=== PATIENT | female | born 1995 ===

== ENCOUNTER 2016-09-06 20:53 | Emergency (ER) | payer MEDICAID, OTHER ==
[2016-01-30 00:46] VITALS: BMI 32.5
--- NOTE | 2016-09-10 18:30 | OBHP ---
Datetime: 09/06/2016 22:15 IP Adm Impression: Term, intrauterine ; No Active Labor; Intact Membranes IP Admit Plan: Discharge home Admit Comment, IP Provider: 20 y.o. P0010, LMP unsure, CYNDEE 09/14/16, EGA 39 weeks, C/O vagnal pressure / crampy vaginal pain x 2-3 days "non stop"; pain scale 8/10. (+) AFM. Denies LOF, VB; had vaginal in tercourse last night. issues: [facility]; anemia. 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 2016, tonsillectomy NKDA Meds: PNV -QD; iron - BID Soc Hx: denies tobacco, illicit drug or EtOH use. Lives with FOB; together x 5 years. 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 Fam hx: Mother alive 50 y.o. - M.S. and lupus. Father alive 52 y.o. no med issues. No knonw fam h /o cancer P.E.: as above. Obese, in NAD. Awake, alert, oriented to time, person and place. Pleasant and coop erative. Assessment: 20 yo P0010, 39 weeks; not in labor. Category 1 tracing. Clinically stable. Plan: 1) Discharge home 2) Reviewed S/S labor 3) Keep scheduled appointments Pelvic Type - PN: Adequate Extremities - PN: Normal Abdomen - PN: Normal Back - PN: Normal Breast - PN: Not Done Lungs - PN: Normal Heart - PN: Normal Thyroid - PN: Not Done Neurologic - PN: Normal HEENT - PN: Normal General - PN: Normal Presentation-Admit: Vertex FHR - Baseline A Provider: 150 Membranes, Provider: Intact Contraction Comments Provider: 8-10 Comments, ACOG Physical Exam: Skin: warm, dry, intact Abdomen: Gravid. soft. Fundal height 40cm All other systems reviewed and are negative Gestation - Est Wks by US: 39.0 EGA AdmitDate IP: 38.6 Vital Signs Provider: Reviewed IP Chief Complaint: Uterine contractions NICHD Variability Prov Fetus A: Moderate 6-25bpm NICHD Accel Fetus A IP Provider: 15X15 FHR Category Provider Fetus A: Category I NICHD Decel Fetus A IP Provider: None Dilatation, Provider: 0 Effacement, Provider: 0 Station, Provider: -3 Genitourinary Exam: Normal DTRs - PN: Not Done
== END 2016-09-06 21:56 | disposition home or self-care (01) ==
LOC: C.EROB 20:53
DX: O47.1 False labor at or after 37 completed weeks of gestation (principal); Z3A.39 39 weeks gestation of pregnancy

== ENCOUNTER 2016-09-10 18:37 | Emergency (ER) | payer MEDICAID ==
[2016-01-30 00:46] VITALS: BMI 32.5
--- NOTE | 2016-09-10 19:34 | OBHP ---
Datetime: 09/10/2016 19:24 IP Adm Impression: Term, intrauterine ; No Active Labor IP Admit Plan: Discharge home Admit Comment, IP Provider: 20 yo , 39w 3d by CYNDEE 09/14/16; poor compliance with care, c /o ctx since 0800hours, pain scale 5/10. (+) AFM; denies LOF, VB. care: [facility], [place]. Bang monroy kept visit Fr 09/08/16; however, cannot state when her next appointment is ..."usually they give me a call". 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 2016, tonsillectomy NKDA Meds: PNV -QD; iron - BID Soc Hx: denies tobacco, illicit drug or EtOH use. Lives with FOB; together x 5 years. 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 P.E.: as above. Obese, in NAD. Awake, alert, oriented to time, person and place. Pleasant and coop erative. Accompanied by her mother. Assessment: 20 yo P0, 39w 3d. not in active labor. Category 1 tracing. Clinically stable. Plan: 1) Discharge home 2) Keep next shceduled appointment 3) Reviewed S/S labor. Pelvic Type - PN: Adequate Extremities - PN: Normal Abdomen - PN: Normal Back - PN: Normal Breast - PN: Not Done Lungs - PN: Normal Heart - PN: Normal Thyroid - PN: Not Done Neurologic - PN: Normal HEENT - PN: Normal General - PN: Normal Presentation-Admit: Vertex FHR - Baseline A Provider: 150 Contraction Comments Provider: 7-10 minutes Comments, ACOG Physical Exam: Skin: warm, dry, intact Abdomen: Gravid. Soft. Non tender in all quadrants All other systems reviewed and are negative Gestation - Est Wks by US: 39w 3d EGA AdmitDate IP: 39.3 Vital Signs Provider: Reviewed; Within Normal Limits IP Chief Complaint: Uterine contractions NICHD Variability Prov Fetus A: Moderate 6-25bpm NICHD Accel Fetus A IP Provider: 15X15 FHR Category Provider Fetus A: Category I NICHD Decel Fetus A IP Provider: None Dilatation, Provider: 1 Effacement, Provider: 40 Station, Provider: -3 Genitourinary Exam: Normal DTRs - PN: Not Done
== END 2016-09-10 19:25 | disposition home or self-care (01) ==
LOC: C.EROB 18:37
DX: O47.1 False labor at or after 37 completed weeks of gestation (principal); Z3A.39 39 weeks gestation of pregnancy

== ENCOUNTER 2016-09-13 22:38 | Inpatient (IN) | payer MEDICAID ==
[2016-09-11 15:53] VITALS: BMI 36.8
[2016-09-13] MEDS ORDERED: Lactated Ringer's 1,000 ML IV SCH (23:15)
--- NOTE | 2016-09-13 23:32 | OBADHP ---
Datetime: 09/13/2016 23:13 Admit Comment, IP Provider: 20 y.o. , LMP unsure, CYNDEE 09/14/16, EGA 39w 6d by sono 7w 4d c/o contractions since 0900 hours; now pain scale 8/10 and occurring every 8 to 10 minutes. (+) AF M; denies LOF, VB. care: [facility]; anemia. 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 2015, tonsillectomy NKDA Meds: PNV -QD; iron - BID Soc Hx: denies tobacco, illicit drug or EtOH use. Lives with FOB; together x 5 years. 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 P.E.: as above. Obese, in NAD. Awake, alert, oriented to time, person and place. Pleasant and coop erative. Accompanied by FOB Assessment: 20 yo P0010, 39w 6d, entering active labor. GBS (-). Anemic. Category 1 tracing. Patie nt receptive to epidural. Clinically stable. Plan: 1) Admit 2) NPO 3) IVFs 4) Admission labs 5) Continuous EFM 6) Epidural 7) possible pitocin augmentation 8) Anticipate vaginal delivery Pelvic Type - PN: Adequate Extremities - PN: Normal Abdomen - PN: Normal Back - PN: Normal Breast - PN: Not Done Lungs - PN: Normal Heart - PN: Normal Thyroid - PN: Not Done Neurologic - PN: Normal HEENT - PN: Normal General - PN: Normal Presentation-Admit: Vertex FHR - Baseline A Provider: 150 Contraction Comments Provider: 5-6 Comments, ACOG Physical Exam: Skin: warm dry, intact; (+) tattoo Abdomen: Gravid. Non tender inall quadrants. Fundal height 39 cm All other systems reviewed and are negative Gestation - Est Wks by US: 39w 6d IP Hx Assessment: The History has been Reviewed and is Current Vital Signs Provider: Reviewed IP Chief Complaint: Uterine contractions NICHD Variability Prov Fetus A: Moderate 6-25bpm NICHD Accel Fetus A IP Provider: 10X10 Dilatation, Provider: 4 Effacement, Provider: 70 Station, Provider: -3 Genitourinary Exam: Normal DTRs - PN: Not Done EGA AdmitDate IP: 40.0 IP Adm Impression: Term, intrauterine ; Active labor; Intact Membranes IP Admit Plan: Admit to unit; Initiate labor protocol Datetime: 09/10/2016 19:24 FHR Category Provider Fetus A: Category I NICHD Decel Fetus A IP Provider: None Datetime: 09/06/2016 22:15 Membranes, Provider: Intact
[2016-09-13 23:34] LABS: BASO % 0.2 % (0.0-2.0); EOS # 0.1 K/uL (0.0-0.7); HEMATOCRIT 31.8 % (34.0-47.0); LYMPH # 2.6 K/uL (1.0-4.3); LYMPH % 21.5 % (20.0-40.0); MEAN CELL VOLUME 77.4 fL (81.0-99.0); MEAN CORPUSCULAR HEMOGLOBIN 23.7 pg (27.0-31.0); MEAN CORPUSCULAR HGB CONC 30.7 g/dL (33.0-37.0); MEAN PLATELET VOLUME 9.9 fL (7.2-11.7); MONO # 0.8 K/uL (0.0-0.8); MONO % 6.4 % (0.0-10.0); RED CELL DISTRIBUTION WIDTH 19.3 % (11.5-14.5); WHITE BLOOD COUNT 11.9 K/uL (4.8-10.8)
[2016-09-13 23:37] LABS: URINE BACTERIA OCC (<OCC); URINE BILIRUBIN NEGATIVE (NEGATIVE); URINE BLOOD NEGATIVE (NEGATIVE); URINE COLOR Colorless (YELLOW); URINE GLUCOSE (UA) NORMAL (Normal); URINE KETONE NEGATIVE (NEGATIVE); URINE LEUKOCYTE ESTERASE NEG Leu/uL (Negative); URINE PROTEIN NEGATIVE (NEGATIVE); URINE UROBILINOGEN NORMAL mg/dL (0.2-1.0); WBC URINE 1 /hpf (0-5)
[2016-09-13 23:41] LABS: CHLORIDE 106 mmol/L (98-107); POTASSIUM 4.2 mmol/L (3.6-5.2); SODIUM 137 mmol/L (132-148)
[2016-09-13 23:43] LABS: ALB/GLOB RATIO 0.9 (1.0-2.1); AST/SGOT 17 U/L (14-36); BILIRUBIN,TOTAL 0.4 mg/dL (0.2-1.3); CARBON DIOXIDE 22 mmol/L (22-30); GFR AFRICAN-AMERICAN > 60; TOTAL PROTEIN 6.7 g/dL (6.3-8.3)
[2016-09-13 23:44] LABS: ALKALINE PHOSPHATASE 219 U/L (38-126); ALT/SGPT 12 U/L (9-52); BLOOD UREA NITROGEN 10 mg/dL (7-17); CALCIUM 8.6 mg/dl (8.6-10.4); GLUCOSE,RANDOM 74 mg/dL (65-105)
[2016-09-14] MEDS ORDERED: Bupivacaine 0.125%/FentaNYL 200 ML EPI ONE (00:25)
[2016-09-14] MEDS: Lactated Ringer's 1,000 ML IV SCH ×2 (00:42→06:44)
[2016-09-14] MEDS ORDERED: Oxytocin 30 UNIT 30 UNITS/500 ML BAG IV PRN (06:00)
--- NOTE | 2016-09-14 07:58 | OBDS ---
DELIVERY PERSONNEL Delivery Doctor: Lyn Amaral MD Restaurant Assistant Manager: Isaiah Esquivel RN Anesthesiologist: MD Ghassan MATERNAL INFORMATION Delivery Anesthesia: Epidural Medications in Delivery: pitocin 20 Maternal Complications: None Provider Comments: TO A VIABLE BOY, 'S 9/9. LABOR SUMMARY EDC: 09/14/2016 00:00 No. Babies in Womb: 0 Attempted: No Labor Anesthesia: None LABOR INFORMATION Reason for Induction: Not Applicable Onset of Labor: 09/13/2016 20:00 Complete Dilatation: 09/14/2016 06:07 Oxytocin: N/A Group B Beta Strep: Negative Steroids Given: None Reason Steroids Not Administered: Not Applicable MEMBRANES Membranes Rupture Method: Spontaneous Amniotic Fluid Color: Clear Amniotic Fluid Amount: Moderate Amniotic Fluid Odor: Normal STAGES OF LABOR Stage 1 hrs: 10 Stage 1 min: 7 Stage 2 hrs: 1 Stage 2 min: 35 Stage 3 hrs: 0 Stage 3 min: 3 Total Time in Labor hrs: 11 Total Time in Labor min: 45 VAGINAL DELIVERY Episiotomy: None Laceration Extension: N/A Laceration Type: None Laceration Repair: Not Applicable Initial Vag Sponge Count: 10 Final Vag Sponge Count: 10 Initial Vag Sharps Count: 0 Final Vag Sharps Count: 10 Sponge Count Correct: Yes BABY A INFORMATION Delivery Date/Time: 09/14/2016 07:42 Method of Delivery: Vaginal Born in Route : No : N/A Forceps: N/A Vacuum Extraction: N/A Shoulder Dystocia : No SHOULDER DYSTOCIA BABY A Delivery Date/Time: 09/14/2016 07:42 PRESENTATION/POSITION BABY A Presentation: Cephalic Cephalic Presentation: Vertex Breech Presentation: N/A PLACENTA INFORMATION BABY A Placenta Delivery Time : 09/14/2016 07:45 Placenta Method of Delivery: Spontaneous Placenta Status: Delivered SCORES BABY A Heart Rate 1 min: >100 bpm Resp Effort 1 min: Good Cry Reflex Irritability 1 min: Cough or Sneeze or Pulls Away Muscle Tone 1 min: Active Motion Color 1 min: Body [place], Extremities Blue Resuscitation Effort 1 min: Tactile Stimulation SCORE 1 MIN: 9 Heart Rate 5 min: >100 bpm Resp Effort 5 min: Good Cry Reflex Irritability 5 min: Cough or Sneeze or Pulls Away Muscle Tone 5 min: Active Motion Color 5 min: Body [place], Extremities Blue SCORE 5 MIN: 9 INFANT INFORMATION BABY A Gestational Age at Delivery: 40.0 Gestational Status: Term Infant Outcome : Liveborn Infant Condition : Stable Infant Sex: Male IDENTIFICATION/MEDS BABY A ID Band Number: [id number] ID Band Location: Left Leg; Left Arm Sensor Applied: Yes Sensor Number: [id number] Sensor Location : Cord Clamp WEIGHT/LENGTH BABY A Infant Birthweight (gms): 3800 Infant Weight (lb): 8 Infant Weight (oz): 6 Length Inches: 20.00 Infant Length cms: 50.8 CORD INFORMATION BABY A No. Cord Vessels: 3 Nuchal Cord : N/A Cord Blood Taken: Yes Infant Suction: Mouth; Nose ASSESSMENT BABY A Complications: None Physical Findings at Delivery: Within Normal Limits Respirations: Appears Normal Natural History Collections Curator/ALS Called : No Infant Care By: dr landaverde Transferred To: Remains with Mother
[2016-09-14] MEDS ORDERED: Benzocaine/Menthol 20%-0.5% Topical Spray (60 ml) TOP PRN (08:01)
[2016-09-14] MEDS: Multiple Vitamins Tab PO SCH (10:09)
[2016-09-15 08:11] LABS: HEMATOCRIT 29.4 % (34.0-47.0)
[2016-09-15 08:13] VITALS: RESP 18
--- NOTE | 2016-09-15 09:08 | OBPPN ---
Datetime: 09/15/2016 09:05 PP Pain Prov: Within normal limits PP Nausea Prov: Denies PP Flatus Prov: Yes PP BM Prov: No PP Heart Prov: Normal PP Lungs Prov: Normal PP Abdomen/Uterus Prov: Normal PP Lochia Prov: Normal PP CVA Tenderness Prov: Normal PP Extremities Prov: Normal PP C/S Incision Prov: Not Applicable PP Progress Prov: Normal PP Impression Prov: Normal progression PP Plan Prov: Continue present management PP Progress Note Prov: S-patient denies any complaints.Toelrating regular diet.Ambulating and voidin g without difficulty.Passing flatus. O-VSS Afebrile fundus firm and at umbilicus Extremities no calf tenderness A/P Patient s/p vaginal delivery PPD 1 doing well -continue routine PP care Vital Signs Provider PP: Reviewed; Within Normal Limits
[2016-09-15] MEDS: Multiple Vitamins Tab PO SCH (10:40)
--- NOTE | 2016-09-16 07:25 | OBPPN ---
Datetime: 09/16/2016 07:22 PP Pain Prov: Within normal limits PP Nausea Prov: Denies PP Flatus Prov: Yes PP BM Prov: Yes PP Breasts Prov: Normal PP Heart Prov: Normal PP Lungs Prov: Normal PP Abdomen/Uterus Prov: Normal PP Lochia Prov: Normal PP Vulva/Perineum Prov: Normal PP CVA Tenderness Prov: Normal PP Extremities Prov: Normal PP C/S Incision Prov: Not Applicable PP Progress Prov: Normal PP Comments Phys Exam Prov: uTERUS FIRM AND CONTRACTED, LOCHIA MINIMAL. PP Impression Prov: Normal progression PP Plan Prov: Discharge PP Progress Note Prov: STABLE. DISCHARGE HOME. CLINIC FOLLOW UP 6 WEEKS. IP PP Procedures: None Vital Signs Provider PP: Reviewed; Within Normal Limits
--- NOTE | 2016-09-16 07:27 | OBDCSUM ---
Datetime: 09/16/2016 07:24 Disch Instr Diet: Regular Discharge Instructions, Provider: Routine instructions given Discharge Diagnosis, Provider: Term Delivered Discharge Time: 09/16/2016 07:25 Contraception discussed, Prov: Yes Discharge Comment, Provider: JUDY, UNCOMPLICATED Discharge Diagnosis Prov Other: . Contraception after Delivery: Undecided
[2016-09-16 08:01] VITALS: BP 102/55; PULSE 81; TEMP 97.8; O2SAT 98
[2016-09-16] MEDS: Multiple Vitamins Tab PO SCH (09:23)
== END 2016-09-16 11:15 | disposition home or self-care (01) | DRG 373 ==
LOC: C.EROB 22:38 → C.4D 23:04 → EEVIPCON 23:04 → C.4M 09-14 09:30
PROVIDERS: ADMIT Obstetrics & Gynecology; ATTEND Obstetrics & Gynecology
PROC: 10E0XZZ Delivery of Products of Conception, External Approach (ICD-10-PCS; principal; 2016-09-14)
DX: O99.02 Anemia complicating childbirth (principal); D64.9 Anemia, unspecified; Z90.721 Acquired absence of ovaries, unilateral; Z3A.40 40 weeks gestation of pregnancy; Z37.0 Single live birth

== ENCOUNTER 2018-03-11 08:00 | Inpatient (IN) | payer MEDICAID ==
[2016-09-11 15:53] VITALS: BMI 36.8
[2018-03-11] MEDS ORDERED: Lactated Ringer's 1,000 ML IV ONE (08:20)
[2018-03-11] MEDS ORDERED: Penicillin G Potassium 5 MU in Dextrose 5% In Water 50 ML IV ONE (08:29)
[2018-03-11 08:43] LABS: BASO % 0.3 % (0.0-2.0); EOS # 0.1 K/uL (0.0-0.7); EOS % 0.6 % (0.0-4.0); HEMOGLOBIN 9.6 g/dL (11.0-16.0); LYMPH # 1.9 K/uL (1.0-4.3); LYMPH % 16.6 % (20.0-40.0); MEAN CORPUSCULAR HEMOGLOBIN 22.5 pg (27.0-31.0); MEAN CORPUSCULAR HGB CONC 30.8 g/dL (33.0-37.0); MEAN PLATELET VOLUME 9.5 fL (7.2-11.7); MONO # 0.6 K/uL (0.0-0.8); MONO % 5.1 % (0.0-10.0); NEUT # 8.9 K/uL (1.8-7.0); NEUT % 77.4 % (50.0-75.0); NRBC % 0.1 % (0.0-2.0); RBC 4.25 Mil/uL (3.80-5.20); RED CELL DISTRIBUTION WIDTH 18.2 % (11.5-14.5); WHITE BLOOD COUNT 11.6 K/uL (4.8-10.8)
[2018-03-11 08:58] LABS: BLOOD UREA NITROGEN 9 mg/dL (7-17); CALCIUM 9.1 mg/dl (8.6-10.4); GFR NON-AFRICAN AMERICAN > 60
--- NOTE | 2018-03-11 09:03 | OBADHP ---
Datetime: 03/11/2018 08:56 Admit Comment, IP Provider: t 38weks no prental care ca,e with c/o ctxs started last night, got worse, no vb , lof+fm obhx 1 x pmh de med pnv all nkda psh e soch de ve /-2 a/p at 38weeks in labor gbs ptogylaxsis for unknown gbs blod tsr cont kelly and efm npo/ivf anticipate Pelvic Type - PN: Adequate Extremities - PN: Normal Abdomen - PN: Normal Back - PN: Normal Breast - PN: Normal Lungs - PN: Normal Heart - PN: Normal Thyroid - PN: Normal Neurologic - PN: Normal HEENT - PN: Normal General - PN: Normal FHR - Baseline A Provider: 130 Contraction Comments Provider: irrg IP Hx Assessment: The History has been Reviewed and is Current Vital Signs Provider: Reviewed; Within Normal Limits IP Chief Complaint: Uterine contractions NICHD Variability Prov Fetus A: Moderate 6-25bpm NICHD Accel Fetus A IP Provider: 15X15 FHR Category Provider Fetus A: Category I Dilatation, Provider: 3 Effacement, Provider: 70 Station, Provider: -2 Genitourinary Exam: Normal DTRs - PN: Normal EGA AdmitDate IP: 38.0 IP Adm Impression: Term, intrauterine ; Active labor IP Admit Plan: Admit to unit; Initiate labor protocol
[2018-03-11] MEDS ORDERED: Oxytocin 30 UNIT 30 UNITS/500 ML BAG IV ONE ×3 (09:06→13:10)
[2018-03-11 09:10] LABS: BARBITURATES, UR NEGATIVE (NEGATIVE); BENZODIAZEPINES, UR NEGATIVE (NEGATIVE); OPIATES, UR NEGATIVE (NEGATIVE); PHENCYCLIDINE, UR NEGATIVE (NEGATIVE)
[2018-03-11] MEDS ORDERED: Fentanyl/Bupivacaine HCl 250 ML EPI ONE (09:15)
[2018-03-11 09:29] LABS: HEPATITIS B SURFACE AG Negative (NEGATIVE)
[2018-03-11] MEDS ORDERED: Lactated Ringer's 1,000 ML IV SCH (09:30)
[2018-03-11] MEDS ORDERED: Penicillin G 5 Million Unit Vial IVPB ONE (09:34)
[2018-03-11] MEDS ORDERED: Penicillin G Potassium 2.5 MU in Dextrose 5% In Water 50 ML IV SCH (12:30)
--- NOTE | 2018-03-11 12:36 | OBPN ---
Datetime: 03/11/2018 12:31 IP Progress Impression: Normal progression of labor IP Procedures: Artificial ROM; Sterile Vag Exam IP Progress Plan: Continue present management FHR - Baseline A Provider: 130 IP Progress Note Comment: pt was examined at bed side ve /-2 arom clear cont pitocin anticipate Vital Signs Provider: Reviewed; Within Normal Limits NICHD Accel Fetus A IP Provider: 10X10 FHR Category Provider Fetus A: Category I NICHD Variability Prov Fetus A: Moderate 6-25bpm Dilatation, Provider: 4 Effacement, Provider: 70 Station, Provider: -2 Datetime: 03/11/2018 08:56 Contraction Comments Provider: irrg
[2018-03-11] MEDS ORDERED: Lidocaine Hydrochloride 5 ML INJ ONE (12:46)
--- NOTE | 2018-03-11 13:07 | OBDS ---
DELIVERY PERSONNEL Anesthesiologist: Emilia N. MD MATERNAL INFORMATION Delivery Anesthesia: Epidural Provider Comments: babny deliverd in oa. end clean no com 9/9 LABOR SUMMARY EDC: 03/25/2018 00:00 No. Babies in Womb: 1 Attempted: No Labor Anesthesia: Epidural LABOR INFORMATION Group B Beta Strep: Done, Result Unknown Steroids Given: None Reason Steroids Not Administered: Not Applicable MEMBRANES Membranes Rupture Method: Artificial Rupture of Membranes: 03/11/2018 12:25 Length of Rupture (hrs): 0.55 Amniotic Fluid Color: Clear Amniotic Fluid Amount: Moderate Amniotic Fluid Odor: Normal STAGES OF LABOR Stage 3 hrs: 0 Stage 3 min: 2 VAGINAL DELIVERY Episiotomy: None Laceration Extension: N/A Laceration Type: None BABY A INFORMATION Infant Delivery Date/Time: 03/11/2018 12:58 Method of Delivery: Vaginal Born in Route : No : N/A Forceps: N/A Vacuum Extraction: N/A Shoulder Dystocia : No SHOULDER DYSTOCIA BABY A Delivery Date/Time: 03/11/2018 12:58 PRESENTATION/POSITION BABY A Presentation: Cephalic Cephalic Presentation: Vertex Vertex Position: Left Occipital Anterior Breech Presentation: N/A PLACENTA INFORMATION BABY A Placenta Delivery Time : 03/11/2018 13:00 Placenta Method of Delivery: Spontaneous Placenta Status: Delivered SCORES BABY A Heart Rate 1 min: >100 bpm Resp Effort 1 min: Good Cry Reflex Irritability 1 min: Cough or Sneeze or Pulls Away Muscle Tone 1 min: Active Motion Color 1 min: Body [place], Extremities Blue Resuscitation Effort 1 min: Tactile Stimulation SCORE 1 MIN: 9 Heart Rate 5 min: >100 bpm Resp Effort 5 min: Good Cry Reflex Irritability 5 min: Cough or Sneeze or Pulls Away Muscle Tone 5 min: Active Motion Color 5 min: Body [place], Extremities Blue SCORE 5 MIN: 9 INFANT INFORMATION BABY A Gestational Age at Delivery: 38.0 Gestational Status: Term Infant Outcome : Liveborn Infant Condition : Stable Sex: Male IDENTIFICATION/MEDS BABY A ID Band Number: [id number] Sensor Number: [id number] CORD INFORMATION BABY A No. Cord Vessels: 3 Nuchal Cord : N/A Cord Blood Taken: Yes Infant Suction: Mouth; Nose
[2018-03-11] MEDS ORDERED: Benzocaine/Menthol 20%-0.5% Topical Spray (60 ml) TOP PRN (13:10)
[2018-03-11 17:05] VITALS: RESP 18
[2018-03-11 17:34] LABS: RAPID PLASMA REAGIN NONREACTIVE (NONREACTIVE)
[2018-03-12 07:13] LABS: BASO # 0.1 K/uL (0.0-0.2); BASO % 0.5 % (0.0-2.0); EOS # 0.1 K/uL (0.0-0.7); EOS % 1.1 % (0.0-4.0); HEMOGLOBIN 8.7 g/dL (11.0-16.0); LYMPH # 3.1 K/uL (1.0-4.3); LYMPH % 22.6 % (20.0-40.0); MEAN CORPUSCULAR HEMOGLOBIN 22.7 pg (27.0-31.0); MEAN PLATELET VOLUME 9.7 fL (7.2-11.7); MONO % 7.3 % (0.0-10.0); NEUT # 9.2 K/uL (1.8-7.0); NEUT % 68.5 % (50.0-75.0); RBC 3.86 Mil/uL (3.80-5.20); WHITE BLOOD COUNT 13.5 K/uL (4.8-10.8)
--- NOTE | 2018-03-12 08:56 | OBPPN ---
Datetime: 03/12/2018 07:32 PP Pain Prov: Within normal limits PP Nausea Prov: Denies PP Flatus Prov: Yes PP BM Prov: No PP Heart Prov: Normal PP Lungs Prov: Normal PP Abdomen/Uterus Prov: Normal PP Lochia Prov: Normal PP Vulva/Perineum Prov: Normal PP Extremities Prov: Normal PP Progress Prov: Normal PP Impression Prov: Normal progression PP Plan Prov: Continue present management PP Progress Note Prov: 22 y o at 38.0 weeks s/p PPD#1. Pt denies any acute complaints t his am, observed at bedside without concerns. No acute events reported overnight. Ambul ating around room without concerns. Pain well controlled, pt just received ibuprofen before clinical exam. Voiding well, passing flatus. Denies bowel movement since delivery. Reports small abd cramping well controlled with pain medication. Reports mild lochia, non-foul smelling. Tolerating PO diet well . Denies headache, fever, chills, chest pain, sob, n/v/d/c, abd pain, urinary complaints, or other sy mptoms. VS: BP 102/66, HR 79, T 98.4 PE: Gen: Well developed well nourished female, NAD HEENT: NCAT, PERRLA, EOMI Neck: supple, no JVD Heart: normal s1/s2, no m/r/g Lungs: CTA b/l, no wheezes rales or rhonchi Abd: soft, NTND, normal bowel sounds x4, no rebound tenderness, no rigidity Exts: no c/c/e Neuro: AAOx3, no gross deficits on exam : mild lochia, non-foul smelling, uterus firm A/P: 22 y o at 38.0 weeks s/p PPD#1. Doing well this am. Meeting goals. Encourage ambulation and . Pain well controlled. D/c planning for PPD#2. Rubella neg on admission labs. Will administer Rubella vaccine prior to d/ c on PPD#2. Social work consult pending for hx no care prior to admission. Plan d/w Dr. Silva, attending physician. Jayson Hemphill, DO PGY-1 Vital Signs Provider PP: Reviewed; Within Normal Limits
[2018-03-13] MEDS ORDERED: Rubella Virus Vaccine Inj SC ONE ×2 (08:39→10:30)
--- NOTE | 2018-03-13 09:00 | OBDCSUM ---
Datetime: 03/13/2018 08:45 Discharged to, Provider: Home Follow up at, Provider: Wan Disch Instr Activity: Normal activity Disch Instr Diet: Regular Discharge Instructions, Provider: Routine instructions given Discharge Diagnosis, Provider: Term Delivered Discharge Time: 03/13/2018 08:58 Follow up in weeks, Provider: 6 weeks Contraception discussed, Prov: Yes Disch Activity Restrictions: No sexual activity; Nothing in vagina - [place], tampons, douche Discharge Comment, Provider: Patient given info for [place] [facility] 6 weeks after d/c for check Pt interested in receiving IUD, will have administered at check. Pt to be d/c'd on PO ferrous sulfate bid, vit C daily, and vits daily. Pt to receive Rubella vaccine for non-immune status prior to d/c. Jayson Mata DO, PGY-1 Attending note: pateint seen and evaluated by me with the resident. I agree with above as document ed Discharge Diagnosis Prov Other: 38 weeks gestation No care Short interval between pregnancies Rubella non immune Anemia Contraception counseling Contraception after Delivery: IUD
[2018-03-13] MEDS ORDERED: Measles, Mumps, and Rubella 0.5 ML VIAL SC ONE (11:30)
[2018-03-13 23:13] VITALS: BP 108/60; PULSE 88; TEMP 97; O2SAT 97
== END 2018-03-13 18:15 | disposition home or self-care (01) | DRG 998 ==
LOC: C.EROB 08:00 → C.4D 08:21 → C.4M 14:30
PROVIDERS: ADMIT Obstetrics & Gynecology; ATTEND Obstetrics & Gynecology
PROC: 10907ZC Drainage of Amniotic Fluid, Therapeutic from Products of Conception, Via Natural or Artificial Opening (ICD-10-PCS; principal; 2018-03-11)
PROC: 10907ZC Drainage of Amniotic Fluid, Therapeutic from Products of Conception, Via Natural or Artificial Opening (ICD-10-PCS; 2018-03-11)
DX: O99.02 Anemia complicating childbirth (principal); D64.9 Anemia, unspecified; Z37.0 Single live birth; Z3A.38 38 weeks gestation of pregnancy